=== PATIENT | male | born 1985 | race African-American/Black ===

== ENCOUNTER 2017-05-07 01:06 | Emergency (ER) ==
[2017-05-07 01:18] VITALS: BP 147/92; TEMP 97.9; BMI 25.7
[2017-05-07] MEDS ORDERED: TETANUS DIPHTHERIA TOXOIDS IM ONE (02:01)
[2017-05-07] MEDS ORDERED: LIDOCAINE 1 % AMP 5 ML (SUTURES) ONE (02:07)
--- NOTE | 2017-05-07 02:11 | ED.PDOC ---
General ED Provider: Dr. SHAYNE KOCH-ER Chief Complaint: Laceration Stated Complaint: i cut my leg on a chain link fence Time Seen by Physician: 01:10 Mode of Arrival: Walk-In Information Source: Patient, Other Exam Limitations: No limitations [facility] and Triage Documentation Reviewed and Agree: Yes Skin Complaint Exam - Laceration/Lower Ext. Complaint/Exam Location of Injury: Left, Thigh Mechanism of Injury: Laceration Onset/Duration: one hour Symptoms Are: Still present Initial Severity: Mild Current Severity: Moderate Aggravating: Movement Alleviating: Compression Associated Signs and Symptoms: Denies: Fever, Chills, Erythema, Numbness, Tingling Differential Diagnoses: Laceration Review of Systems - Review Of Systems Constitutional: Reports: No symptoms Eyes: Reports: No symptoms Ears, Nose, Mouth, Throat: Reports: No symptoms Respiratory: Reports: No symptoms Cardiac: Reports: No symptoms GI: Reports: No symptoms : Reports: No symptoms Musculoskeletal: Reports: No symptoms Skin: Reports: No symptoms Neurological: Reports: No symptoms Endocrine: Reports: No symptoms Hematologic/Lymphatic: Reports: No symptoms All Other Systems: Reviewed and Negative Past Medical History - Past Medical History Previously Healthy: Yes Endocrine: Reports: None Cardiovascular: Reports: None Respiratory: Reports: None Hematological: Reports: None Gastrointestinal: Reports: None Genitourinary: Reports: None Neuro/Psych: Reports: None Musculoskeletal: Reports: None Cancer: Reports: None - Surgical History General Surgical History: Reports: None - Family History Family History: Reports: None - Social History Smoking Status: Current some day smoker Hx Substance Use: No Alcohol Screening: None Lives: With family - Immunizations Tetanus Shot up to Date: (UNKNOWN) Physical Exam - Physical Exam Appearance: Well-appearing, No pain distress, Well-nourished Pain Distress: Mild Eyes: SHANA ENT: Ears normal, Nose normal, Oropharynx normal Neck: Supple Respiratory: Airway patent, Breath sounds clear, Breath sounds equal, Respirations nonlabored Cardiovascular: RRR, Pulses normal, No rub, No murmur GI/: Soft, Nontender, No masses, Bowel sounds normal, No Organomegaly Musculoskeletal: Normal strength, ROM intact, No edema, No calf tenderness Skin: Warm, Dry, Normal color Neurological: Sensation intact, Motor intact, Reflexes intact, Cranial nerves intact, Alert, Oriented Psychiatric: Affect appropriate, Mood appropriate, Anxious Procedures - Laceration/Wound Repair No standard instances Wound Description: Linear Wound Length (cm): 4cm Wound Explored: Clean Wound Irrigated: Yes Wound Prep: Betadine, Scrub Anesthesia: Lidocaine Wound Debrided: Minimal Undermining: Minimal Wound Repaired With: Sutures Suture Size and Type: 5 4.o prolene Number of Sutures: 5 Layer Closure?: No Sterile Dressing Applied?: Yes Splint Applied?: No Sling Applied?: No Critical Care Note - Critical Care Note Total Time (mins): 0 Course - Course Orders, Labs, Meds: Orders Category Date Time Status Tetanus, Diphtheria Tox,Adult [Tetanus Diphtheria MEDS 05/07/17 02:01 Discontinued Toxoids] 0.5 ml IM .ONCE ONE FEMUR, LEFT 2 VIEWS Stat RADS 05/07/17 02:06 Ordered Medications Discontinued Medications Generic Name Dose Route Start Last Admin Trade Name Freq PRN Reason Stop Dose Admin Tetanus/Diphtheria Toxoids 0.5 ml 05/07/17 02:01 Tetanus Diphtheria Toxoids IM 05/07/17 02:02 .ONCE ONE Vital Signs: Temp Pulse Resp BP Pulse Ox 05/07/17 01:07 97.9 F 67 18 147/92 H 100 Departure - Departure Time of Disposition: 02:15 Disposition: HOME SELF-CARE Discharge Problem: Laceration - injury Instructions: Laceration (ED), Care For Your Stitches (ED) Condition: Good Pt referred to PMD for follow-up: Yes Additional Instructions: routine suture care--keep clean and dry--sutures out in 7 days--return if any signs of infection Allergies/Adverse Reactions: Allergies No Known Allergies Allergy (Verified 05/07/17 01:15) Home Medications: Ambulatory Orders 1 [No Reported Medications] 05/07/17 Transfer Form Completed: No Disposition Discussed With: Patient, Family
[2017-05-07] MEDS ORDERED: TENIVAC IM ONE (02:27)
[2017-05-07] MEDS ORDERED: LIDOCAINE 1 % AMP 5 ML (SUTURES) SUBCUT STA (02:28)
--- NOTE | 2017-05-07 07:10 | DI ---
EXAM: Left femur, two-view HISTORY: Trauma COMPARISON: None FINDINGS: The bones are normal. Alignment is normal. There are multiple foci of soft tissue gas in the medial lower thigh. IMPERSSION: Multiple foci of soft tissue gas in the medial lower thigh. No fracture or dislocation . Report faxed at time of dictation.
== END 2017-05-07 02:37 | disposition home or self-care (01) ==
LOC: ED 01:06
DX: S71.112A Laceration without foreign body, left thigh, initial encounter (principal); W26.8XXA Contact with other sharp object(s), not elsewhere classified, initial encounter; F17.210 Nicotine dependence, cigarettes, uncomplicated
CPT/HCPCS: 90471; 99283